=== PATIENT | male | born 1940 | race African-American/Black ===

== ENCOUNTER 2021-07-25 21:45 | Inpatient (IN) | payer MEDICARE ==
[~2021-07-25] VITALS: Ht 162.6 cm; Wt 68.9 kg
[2021-07-25 21:45] VITALS: BP 137/88
[~2021-07-25 21:45] MED LIST: BACL20TA PO; GABA-532 PO; OMEP20CA14 PO; OXYC-662 MT; OXYC10TA58 PO; TAMS-11 PO
[2021-07-25] MEDS ORDERED: IPRATROPIUM/ALBUTEROL 0.5-3(2.5)MG/3ML NEB HHN PRN (23:45)
[2021-07-26] MEDS ORDERED: CLONIDINE 0.1MG TABLET PO PRN
[2021-07-26] MEDS ORDERED: SODIUM CHLORIDE 0.9% INJ 3ML FLUSH IVF PRN
[2021-07-26] MEDS ORDERED: ONDANSETRON HCL 4MG TABLET PO PRN
[2021-07-26] MEDS ORDERED: GUAIFENESIN 200MG/10ML SUGAR FREE UDC PO PRN
[2021-07-26] MEDS ORDERED: NITROGLYCERIN 0.4MG TABLET SL SL PRN (00:15)
[2021-07-26] MEDS: OXYCODONE HCL/ACETAMINOPHEN 5/325MG TABLET PO PRN ×2 (01:12→13:42)
[2021-07-26 02:54] LABS: CLARITY URINE CLEAR (CLEAR); COLOR URINE YELLOW (YELLOW); KETONES URINE 1+ (NEGATIVE); LEUKOCYTE ESTERASE URINE TRACE (NEGATIVE); NITRITE URINE NEGATIVE (NEGATIVE); OCCULT BLOOD URINE 1+ (NEGATIVE); PH URINE >=9.0 (4.5-8.0); PROTEIN URINE 1+ (NEGATIVE); SPECIFIC GRAVITY URINE 1.018 (1.005-1.030)
[2021-07-26 06:25] LABS: BASOPHILS % 0.5 % (0.0-2.0); EOSINOPHILS % 4.7 % (0.0-5.0); HEMATOCRIT. 33.2 % (42.0-52.0); HEMOGLOBIN. 11.4 g/dL (14.0-18.0); LYMPHOCYTES % 17.9 % (20.0-50.0); MEAN CORPUSCULAR HEMOGLOBIN 26.1 pg (28.0-32.0); MEAN CORPUSCULAR VOLUME 76.2 fL (80.0-94.0); MEAN PLATELET VOLUME 7.7 fl (7.4-10.4); MONOCYTES % 11.5 % (2.0-8.0); NEUTROPHILS % 65.4 % (40.0-76.0); PLATELET 253 x1000/uL (130-400); RED BLOOD CELL COUNT 4.36 mill/uL (4.7-6.1); RED CELL DISTRIBUTION WIDTH 19.6 % (11.6-14.6)
[2021-07-26 06:37] LABS: CHLORIDE 108 mEq/L (98-107)
[2021-07-26 08:00] VITALS: BP 136/81
[2021-07-26] MEDS ORDERED: LACTULOSE 20G/30ML UDC PO SCH (08:30)
[2021-07-26] MEDS ORDERED: ENOXAPARIN 60MG/0.6ML SYR SUBCUT SCH (09:00)
[2021-07-26] MEDS: DUTASTERIDE 0.5MG CAPSULE PO SCH ×2 (10:05→20:41)
[2021-07-26] MEDS: DOCUSATE SODIUM 100MG CAPSULE PO SCH ×2 (10:06→17:00)
[2021-07-26] MEDS: FUROSEMIDE 40MG TABLET PO SCH (10:06)
[2021-07-26] MEDS: ASPIRIN 81MG TABLET PO SCH (10:06)
[2021-07-26] MEDS: AMLODIPINE 5MG TABLET PO SCH ×2 (10:07→20:36)
[2021-07-26] MEDS: METOPROLOL TARTRATE 25MG TABLET PO SCH ×2 (10:07→20:36)
[2021-07-26] MEDS: TAMSULOSIN HCL 0.4MG SR CAPSULE PO SCH ×2 (10:07→20:41)
[2021-07-26] MEDS: OXYCODONE HCL 10MG TABLET SR 12HR PO SCH ×2 (10:08→20:37)
[2021-07-26] MEDS: MAGNESIUM/ALUMINUM HYDROXIDE/SIMETHICONE 30ML UDC PO PRN (11:00)
[2021-07-26] MEDS ORDERED: NALOXONE HCL 0.4MG/ML VIAL IV PRN (13:15)
[2021-07-26 20:00] VITALS: BP 151/71
[2021-07-26] MEDS: ATORVASTATIN CALCIUM 40MG TABLET PO SCH (20:33)
[2021-07-26] MEDS ORDERED: FAMOTIDINE 20MG TABLET PO SCH (21:00)
[2021-07-27] MEDS: OXYCODONE HCL/ACETAMINOPHEN 5/325MG TABLET PO PRN ×2 (04:52→17:57)
[2021-07-27 07:57] VITALS: BP 144/83
[2021-07-27] MEDS: ASPIRIN 81MG TABLET PO SCH (09:00)
[2021-07-27] MEDS: MAGNESIUM/ALUMINUM HYDROXIDE/SIMETHICONE 30ML UDC PO PRN (09:12)
[2021-07-27] MEDS: DOCUSATE SODIUM 100MG CAPSULE PO SCH ×2 (09:12→17:00)
[2021-07-27] MEDS: TAMSULOSIN HCL 0.4MG SR CAPSULE PO SCH (09:12)
[2021-07-27] MEDS: AMLODIPINE 5MG TABLET PO SCH ×2 (09:13→21:00)
[2021-07-27] MEDS: DUTASTERIDE 0.5MG CAPSULE PO SCH (09:13)
[2021-07-27] MEDS: FUROSEMIDE 40MG TABLET PO SCH (09:13)
[2021-07-27] MEDS: METOPROLOL TARTRATE 25MG TABLET PO SCH ×2 (09:13→21:00)
[2021-07-27] MEDS: OXYCODONE HCL 10MG TABLET SR 12HR PO SCH ×2 (09:13→21:34)
[2021-07-27] MEDS: ENOXAPARIN 60MG/0.6ML SYR SUBCUT SCH (09:14)
[2021-07-27] MEDS: PANTOPRAZOLE 40MG DR TABLET PO SCH (12:28)
[2021-07-27 20:00] VITALS: BP 94/58
[2021-07-27 20:22] LABS: BASOPHILS % 0.4 % (0.0-2.0); EOSINOPHILS % 2.3 % (0.0-5.0); HEMATOCRIT. 34.8 % (42.0-52.0); HEMOGLOBIN. 11.9 g/dL (14.0-18.0); LYMPHOCYTES % 16.8 % (20.0-50.0); MEAN CORPUSCULAR HEMOGLOBIN 26.2 pg (28.0-32.0); MONOCYTES % 8.3 % (2.0-8.0); NEUTROPHILS % 72.2 % (40.0-76.0); RED BLOOD CELL COUNT 4.52 mill/uL (4.7-6.1); RED CELL DISTRIBUTION WIDTH 20.2 % (11.6-14.6)
[2021-07-27 20:50] LABS: CHLORIDE 105 mEq/L (98-107)
[2021-07-27 20:56] LABS: TOTAL IRON BINDING CAPACITY 242 ug/dL (250-450)
[2021-07-27 21:07] LABS: PLATELET ESTIMATE NORMAL
[2021-07-27 21:08] LABS: FOLIC ACID (FOLATE) SERUM 7.9 ng/mL (>5.38)
[2021-07-27 21:09] LABS: MEAN PLATELET VOLUME 7.9 fl (7.4-10.4); PLATELET 231 x1000/uL (130-400)
[2021-07-27] MEDS: ATORVASTATIN CALCIUM 40MG TABLET PO SCH (21:33)
[2021-07-28] MEDS: OXYCODONE HCL/ACETAMINOPHEN 5/325MG TABLET PO PRN ×2 (06:46→18:59)
[2021-07-28] MEDS: PANTOPRAZOLE 40MG DR TABLET PO SCH (06:46)
[2021-07-28 08:00] VITALS: BP 119/68
[2021-07-28] MEDS: METOPROLOL TARTRATE 25MG TABLET PO SCH ×2 (09:40→21:38)
[2021-07-28] MEDS: TAMSULOSIN HCL 0.4MG SR CAPSULE PO SCH (09:40)
[2021-07-28] MEDS: DOCUSATE SODIUM 100MG CAPSULE PO SCH ×2 (09:41→17:00)
[2021-07-28] MEDS: ASPIRIN 81MG TABLET PO SCH (09:41)
[2021-07-28] MEDS: FUROSEMIDE 40MG TABLET PO SCH (09:41)
[2021-07-28] MEDS: OXYCODONE HCL 10MG TABLET SR 12HR PO SCH ×2 (09:42→21:38)
[2021-07-28] MEDS: AMLODIPINE 5MG TABLET PO SCH ×2 (09:50→21:38)
[2021-07-28] MEDS: DUTASTERIDE 0.5MG CAPSULE PO SCH (09:50)
[2021-07-28] MEDS: CYANOCOBALAMIN 1000MCG/ML VIAL IM SCH (12:42)
[2021-07-28] MEDS: ASCORBIC ACID 500 MG TABLET PO SCH (12:42)
[2021-07-28] MEDS: FERROUS SULFATE 325MG TABLET PO SCH ×2 (12:42→17:00)
[2021-07-28 20:00] VITALS: BP 128/75
[2021-07-28] MEDS: ATORVASTATIN CALCIUM 40MG TABLET PO SCH (21:38)
[2021-07-29] MEDS: PANTOPRAZOLE 40MG DR TABLET PO SCH (06:44)
[2021-07-29 08:00] VITALS: BP 120/80
[2021-07-29] MEDS: DOCUSATE SODIUM 100MG CAPSULE PO SCH ×2 (09:00→17:00)
[2021-07-29] MEDS: DUTASTERIDE 0.5MG CAPSULE PO SCH (10:13)
[2021-07-29] MEDS: ASPIRIN 81MG TABLET PO SCH (10:14)
[2021-07-29] MEDS: FUROSEMIDE 40MG TABLET PO SCH (10:14)
[2021-07-29] MEDS: CYANOCOBALAMIN 1000MCG/ML VIAL IM SCH (10:15)
[2021-07-29] MEDS: TAMSULOSIN HCL 0.4MG SR CAPSULE PO SCH (10:15)
[2021-07-29] MEDS: ASCORBIC ACID 500 MG TABLET PO SCH (10:16)
[2021-07-29] MEDS: OXYCODONE HCL 10MG TABLET SR 12HR PO SCH ×2 (10:16→21:34)
[2021-07-29] MEDS: FERROUS SULFATE 325MG TABLET PO SCH ×3 (10:17→17:00)
[2021-07-29] MEDS: METOPROLOL TARTRATE 25MG TABLET PO SCH ×2 (10:17→21:35)
[2021-07-29] MEDS: AMLODIPINE 5MG TABLET PO SCH ×2 (10:22→21:34)
[2021-07-29] MEDS: OXYCODONE HCL/ACETAMINOPHEN 5/325MG TABLET PO PRN (15:30)
[2021-07-29 20:00] VITALS: BP 119/68
[2021-07-29] MEDS: ENOXAPARIN 60MG/0.6ML SYR SUBCUT SCH (21:33)
[2021-07-29] MEDS: ATORVASTATIN CALCIUM 40MG TABLET PO SCH (21:34)
[2021-07-30] MEDS: OXYCODONE HCL/ACETAMINOPHEN 5/325MG TABLET PO PRN ×2 (03:46→15:19)
[2021-07-30 06:08] LABS: BASOPHILS % 0.3 % (0.0-2.0); EOSINOPHILS % 3.5 % (0.0-5.0); HEMATOCRIT. 31.1 % (42.0-52.0); HEMOGLOBIN. 10.7 g/dL (14.0-18.0); MEAN CORPUSCULAR HEMOGLOBIN 25.9 pg (28.0-32.0); MEAN CORPUSCULAR VOLUME 75.2 fL (80.0-94.0); MONOCYTES % 9.4 % (2.0-8.0); NEUTROPHILS % 70.8 % (40.0-76.0); PLATELET 410 x1000/uL (130-400); RED BLOOD CELL COUNT 4.13 mill/uL (4.7-6.1); RED CELL DISTRIBUTION WIDTH 19.6 % (11.6-14.6)
[2021-07-30] MEDS: PANTOPRAZOLE 40MG DR TABLET PO SCH (06:31)
[2021-07-30 06:35] LABS: CHLORIDE 107 mEq/L (98-107)
[2021-07-30 08:00] VITALS: BP 116/65
[2021-07-30] MEDS: TAMSULOSIN HCL 0.4MG SR CAPSULE PO SCH (08:45)
[2021-07-30] MEDS: DOCUSATE SODIUM 100MG CAPSULE PO SCH ×2 (08:45→17:14)
[2021-07-30] MEDS: AMLODIPINE 5MG TABLET PO SCH ×2 (08:45→21:46)
[2021-07-30] MEDS: ASCORBIC ACID 500 MG TABLET PO SCH (08:45)
[2021-07-30] MEDS: DUTASTERIDE 0.5MG CAPSULE PO SCH (08:45)
[2021-07-30] MEDS: ASPIRIN 81MG TABLET PO SCH (08:46)
[2021-07-30] MEDS: FUROSEMIDE 40MG TABLET PO SCH (08:46)
[2021-07-30] MEDS: METOPROLOL TARTRATE 25MG TABLET PO SCH ×2 (08:46→21:46)
[2021-07-30] MEDS: FERROUS SULFATE 325MG TABLET PO SCH ×3 (08:46→17:14)
[2021-07-30] MEDS: OXYCODONE HCL 10MG TABLET SR 12HR PO SCH ×2 (08:47→21:48)
[2021-07-30] MEDS: CYANOCOBALAMIN 1000MCG/ML VIAL IM SCH (08:48)
[2021-07-30] MEDS: ENOXAPARIN 60MG/0.6ML SYR SUBCUT SCH (08:49)
[2021-07-30 20:00] VITALS: BP 128/82
[2021-07-30] MEDS: ATORVASTATIN CALCIUM 40MG TABLET PO SCH (21:46)
[2021-07-30] MEDS: ENOXAPARIN 80MG/0.8ML SYR SUBCUT SCH (21:48)
[2021-07-31] MEDS: PANTOPRAZOLE 40MG DR TABLET PO SCH (06:25)
[2021-07-31 07:54] VITALS: BP 134/72
[2021-07-31 08:00] VITALS: BP 134/72
[2021-07-31] MEDS: ASPIRIN 81MG TABLET PO SCH (08:25)
[2021-07-31] MEDS: FERROUS SULFATE 325MG TABLET PO SCH ×3 (08:25→16:48)
[2021-07-31] MEDS: ASCORBIC ACID 500 MG TABLET PO SCH (08:25)
[2021-07-31] MEDS: FUROSEMIDE 40MG TABLET PO SCH (08:25)
[2021-07-31] MEDS: TAMSULOSIN HCL 0.4MG SR CAPSULE PO SCH (08:26)
[2021-07-31] MEDS: AMLODIPINE 5MG TABLET PO SCH ×2 (08:26→21:38)
[2021-07-31] MEDS: METOPROLOL TARTRATE 25MG TABLET PO SCH ×2 (08:26→21:38)
[2021-07-31] MEDS: CYANOCOBALAMIN 1000MCG/ML VIAL IM SCH (08:27)
[2021-07-31] MEDS: OXYCODONE HCL 10MG TABLET SR 12HR PO SCH (08:28)
[2021-07-31] MEDS: DOCUSATE SODIUM 100MG CAPSULE PO SCH ×2 (08:28→15:57)
[2021-07-31] MEDS: DUTASTERIDE 0.5MG CAPSULE PO SCH (08:39)
[2021-07-31] MEDS: ENOXAPARIN 80MG/0.8ML SYR SUBCUT SCH ×2 (08:42→21:40)
[2021-07-31] MEDS: ACETAMINOPHEN 325MG TABLET PO PRN (15:55)
[2021-07-31] MEDS: OXYCODONE HCL/ACETAMINOPHEN 5/325MG TABLET PO PRN (17:52)
[2021-07-31 20:00] VITALS: BP 132/73
[2021-07-31] MEDS: ATORVASTATIN CALCIUM 40MG TABLET PO SCH (21:38)
[2021-08-01] MEDS: OXYCODONE HCL/ACETAMINOPHEN 5/325MG TABLET PO PRN ×4 (02:47→21:07)
[2021-08-01] MEDS: ACETAMINOPHEN 325MG TABLET PO PRN (06:14)
[2021-08-01] MEDS: PANTOPRAZOLE 40MG DR TABLET PO SCH (06:14)
[2021-08-01 07:06] LABS: BASOPHILS % 0.5 % (0.0-2.0); EOSINOPHILS % 4.2 % (0.0-5.0); HEMATOCRIT. 33.5 % (42.0-52.0); HEMOGLOBIN. 11.4 g/dL (14.0-18.0); LYMPHOCYTES % 18.4 % (20.0-50.0); MEAN CORPUSCULAR HEMOGLOBIN 25.9 pg (28.0-32.0); MEAN CORPUSCULAR VOLUME 75.6 fL (80.0-94.0); MEAN PLATELET VOLUME 8.3 fl (7.4-10.4); NEUTROPHILS % 67.9 % (40.0-76.0); PLATELET 474 x1000/uL (130-400); RED BLOOD CELL COUNT 4.42 mill/uL (4.7-6.1); RED CELL DISTRIBUTION WIDTH 20.1 % (11.6-14.6)
[2021-08-01 07:25] LABS: CHLORIDE 107 mEq/L (98-107)
[2021-08-01 07:56] VITALS: BP 127/82
[2021-08-01] MEDS: ASPIRIN 81MG TABLET PO SCH (08:32)
[2021-08-01] MEDS: FERROUS SULFATE 325MG TABLET PO SCH ×3 (08:32→16:48)
[2021-08-01] MEDS: ASCORBIC ACID 500 MG TABLET PO SCH (08:33)
[2021-08-01] MEDS: METOPROLOL TARTRATE 25MG TABLET PO SCH ×2 (08:33→20:31)
[2021-08-01] MEDS: FUROSEMIDE 40MG TABLET PO SCH (08:33)
[2021-08-01] MEDS: TAMSULOSIN HCL 0.4MG SR CAPSULE PO SCH (08:34)
[2021-08-01] MEDS: CYANOCOBALAMIN 1000MCG/ML VIAL IM SCH (08:34)
[2021-08-01] MEDS: AMLODIPINE 5MG TABLET PO SCH ×2 (08:34→20:32)
[2021-08-01] MEDS: DUTASTERIDE 0.5MG CAPSULE PO SCH (08:34)
[2021-08-01] MEDS: ENOXAPARIN 80MG/0.8ML SYR SUBCUT SCH ×2 (08:35→20:31)
[2021-08-01] MEDS: DOCUSATE SODIUM 100MG CAPSULE PO SCH ×2 (08:35→16:24)
[2021-08-01] MEDS: FINASTERIDE 5MG TABLET PO SCH (14:10)
[2021-08-01] MEDS ORDERED: NALOXONE HCL 0.4MG/ML VIAL IV PRN (17:30)
[2021-08-01 20:00] VITALS: BP 124/73
[2021-08-01] MEDS: ATORVASTATIN CALCIUM 40MG TABLET PO SCH (20:31)
[2021-08-02 02:40] VITALS: BP 133/72
[2021-08-02] MEDS: OXYCODONE HCL/ACETAMINOPHEN 5/325MG TABLET PO PRN ×4 (02:48→21:16)
[2021-08-02] MEDS: PANTOPRAZOLE 40MG DR TABLET PO SCH (06:30)
[2021-08-02 08:00] VITALS: BP 138/78
[2021-08-02] MEDS: DOCUSATE SODIUM 100MG CAPSULE PO SCH ×3 (09:00→17:00)
[2021-08-02] MEDS: FUROSEMIDE 40MG TABLET PO SCH (09:06)
[2021-08-02] MEDS: FINASTERIDE 5MG TABLET PO SCH (09:06)
[2021-08-02] MEDS: AMLODIPINE 5MG TABLET PO SCH ×2 (09:06→20:13)
[2021-08-02] MEDS: ASCORBIC ACID 500 MG TABLET PO SCH (09:06)
[2021-08-02] MEDS: ASPIRIN 81MG TABLET PO SCH (09:06)
[2021-08-02] MEDS: TAMSULOSIN HCL 0.4MG SR CAPSULE PO SCH (09:06)
[2021-08-02] MEDS: FERROUS SULFATE 325MG TABLET PO SCH ×3 (09:06→17:57)
[2021-08-02] MEDS: METOPROLOL TARTRATE 25MG TABLET PO SCH ×2 (09:08→20:13)
[2021-08-02] MEDS: ENOXAPARIN 80MG/0.8ML SYR SUBCUT SCH ×2 (09:09→20:12)
[2021-08-02 20:00] VITALS: BP 132/77
[2021-08-02] MEDS: ATORVASTATIN CALCIUM 40MG TABLET PO SCH (20:12)
[2021-08-03] MEDS: OXYCODONE HCL/ACETAMINOPHEN 5/325MG TABLET PO PRN ×2 (03:27→08:45)
[2021-08-03] MEDS: PANTOPRAZOLE 40MG DR TABLET PO SCH (06:03)
[2021-08-03 08:00] VITALS: BP 132/82
[2021-08-03 08:31] VITALS: BP 19/132
[2021-08-03] MEDS: ASCORBIC ACID 500 MG TABLET PO SCH (08:43)
[2021-08-03] MEDS: ASPIRIN 81MG TABLET PO SCH (08:43)
[2021-08-03] MEDS: DOCUSATE SODIUM 100MG CAPSULE PO SCH (08:43)
[2021-08-03] MEDS: AMLODIPINE 5MG TABLET PO SCH (08:43)
[2021-08-03] MEDS: FUROSEMIDE 40MG TABLET PO SCH (08:43)
[2021-08-03] MEDS: FINASTERIDE 5MG TABLET PO SCH (08:43)
[2021-08-03] MEDS: FERROUS SULFATE 325MG TABLET PO SCH (08:44)
[2021-08-03] MEDS: METOPROLOL TARTRATE 25MG TABLET PO SCH (08:44)
[2021-08-03 08:45] VITALS: BP 150/80
[2021-08-03] MEDS: ENOXAPARIN 80MG/0.8ML SYR SUBCUT SCH (08:45)
[2021-08-03] MEDS: TAMSULOSIN HCL 0.4MG SR CAPSULE PO SCH (08:48)
[2021-08-03] MEDS ORDERED: NALOXONE HCL 0.4MG/ML VIAL IV PRN (09:45)
[2021-08-06 17:09] LABS: 25-HYDROXY VITAMIN D3 11 ng/mL (.)
== END 2021-08-03 10:52 | disposition home health service (06) | DRG 281 ==
PROVIDERS: ADMIT Physical Medicine & Rehabilitation Spinal Cord Injury Medicine; ATTEND Internal Medicine
DX: I21.4 Non-ST elevation (NSTEMI) myocardial infarction (principal); D62 Acute posthemorrhagic anemia; E44.0 Moderate protein-calorie malnutrition; I42.9 Cardiomyopathy, unspecified; N13.8 Other obstructive and reflux uropathy; D63.8 Anemia in other chronic diseases classified elsewhere; E53.8 Deficiency of other specified B group vitamins; E61.1 Iron deficiency; E78.5 Hyperlipidemia, unspecified; E87.6 Hypokalemia; F06.8 Other specified mental disorders due to known physiological condition; F06.34 Mood disorder due to known physiological condition with mixed features; R53.81 Other malaise; Z60.2 Problems related to living alone; G89.4 Chronic pain syndrome; I11.0 Hypertensive heart disease with heart failure; I25.10 Atherosclerotic heart disease of native coronary artery without angina pectoris; I50.9 Heart failure, unspecified; R26.9 Unspecified abnormalities of gait and mobility; K21.9 Gastro-esophageal reflux disease without esophagitis; N40.1 Benign prostatic hyperplasia with lower urinary tract symptoms; R33.8 Other retention of urine; R13.10 Dysphagia, unspecified; Z82.49 Family history of ischemic heart disease and other diseases of the circulatory system; Z95.1 Presence of aortocoronary bypass graft; Z56.0 Unemployment, unspecified; Z68.26 Body mass index [BMI] 26.0-26.9, adult
CPT/HCPCS: 36415; 80048; 80053; 81003; 82306; 82607; 82728; 82746; 83540; 83550; 84134; 84153; 84443; 85025; 92610; 93970; 97110; 97112; 97116; 97163; 97166; 97530; 97535; J1650; J3420; G0103

== ENCOUNTER 2021-12-22 13:39 | Emergency (ER) | payer MEDICARE, MEDICAID ==
[~2021-12-22] VITALS: Ht 160 cm; Wt 68.0 kg
[2021-12-22 14:47] LABS: CLARITY URINE CLEAR (CLEAR); COLOR URINE YELLOW (YELLOW); KETONES URINE NEGATIVE (NEGATIVE); LEUKOCYTE ESTERASE URINE TRACE (NEGATIVE); NITRITE URINE NEGATIVE (NEGATIVE); OCCULT BLOOD URINE 3+ (NEGATIVE); PH URINE 7.5 (4.5-8.0); PROTEIN URINE NEGATIVE (NEGATIVE); SPECIFIC GRAVITY URINE 1.007 (1.005-1.030); UROBILINOGEN URINE 0.2 E.U./dL (0.2-1.0)
[2021-12-22] MEDS ORDERED: NITR-87 MT (16:49)
[2021-12-22 18:30] VITALS: BP 133/88
== END 2021-12-22 18:50 | disposition home or self-care (01) ==
LOC: ER 13:58
DX: N40.1 Benign prostatic hyperplasia with lower urinary tract symptoms (principal); R33.8 Other retention of urine; N39.0 Urinary tract infection, site not specified; I10 Essential (primary) hypertension; Z98.890 Other specified postprocedural states
CPT/HCPCS: 81003; 87077; 87186; 99285; A4315

== ENCOUNTER 2022-05-18 05:51 | Emergency (ER) | payer MEDICARE, MEDICAID ==
[~2022-05-18] VITALS: Ht 172.7 cm; Wt 70.0 kg
[~2022-05-18 05:51] MED LIST changes: +NITR-87 MT
[2022-05-18 10:26] LABS: CLARITY URINE CLEAR (CLEAR); COLOR URINE YELLOW (YELLOW); KETONES URINE NEGATIVE (NEGATIVE); LEUKOCYTE ESTERASE URINE NEGATIVE (NEGATIVE); NITRITE URINE NEGATIVE (NEGATIVE); OCCULT BLOOD URINE NEGATIVE (NEGATIVE); PH URINE 6.5 (4.5-8.0); PROTEIN URINE NEGATIVE (NEGATIVE); SPECIFIC GRAVITY URINE 1.014 (1.005-1.030)
[2022-05-18 12:53] VITALS: BP 116/72
== END 2022-05-18 12:54 | disposition home or self-care (01) ==
LOC: ER 05:51
DX: N40.1 Benign prostatic hyperplasia with lower urinary tract symptoms (principal); R33.8 Other retention of urine; Z95.1 Presence of aortocoronary bypass graft
CPT/HCPCS: 51702; 81003; 99284; A4315

== ENCOUNTER 2022-08-11 16:03 | Emergency (ER) | payer MEDICARE, MEDICAID ==
[~2022-08-11] VITALS: Ht 165.1 cm; Wt 68.0 kg
[2022-08-11 16:08] VITALS: BP 152/98
[2022-08-11 18:18] LABS: CLARITY URINE TURBID (CLEAR); COLOR URINE YELLOW (YELLOW); KETONES URINE NEGATIVE (NEGATIVE); LEUKOCYTE ESTERASE URINE 3+ (NEGATIVE); NITRITE URINE NEGATIVE (NEGATIVE); OCCULT BLOOD URINE 2+ (NEGATIVE); PH URINE 6.5 (4.5-8.0); PROTEIN URINE TRACE (NEGATIVE); SPECIFIC GRAVITY URINE 1.009 (1.005-1.030); UROBILINOGEN URINE 0.2 E.U./dL (0.2-1.0)
[2022-08-11] MEDS ORDERED: CEPH500C2 MT (19:13)
== END 2022-08-11 19:30 | disposition home or self-care (01) ==
LOC: ER 16:03
DX: R33.9 Retention of urine, unspecified (principal); N39.0 Urinary tract infection, site not specified; I25.2 Old myocardial infarction; I25.10 Atherosclerotic heart disease of native coronary artery without angina pectoris
CPT/HCPCS: 81003; 87077; 87186; 99283; A4315

== ENCOUNTER 2022-10-24 17:34 | Emergency (ER) | payer MEDICARE, MEDICAID ==
[~2022-10-24] VITALS: Ht 160 cm; Wt 64.0 kg
[~2022-10-24 17:34] MED LIST changes: +ATOR40TA70 PO; -BACL20TA PO; +CIPR-263 MT; +DUTA0.5C37 PO; +FERR325T30 PO; +FURO40TA5 PO; -GABA-532 PO; +MELO-106 PO; +METO25TA6 PO; +NIFE-33 PO; -NITR-87 MT; -OXYC10TA58 PO
[2022-10-24 18:04] VITALS: BP 131/78; O2SAT 98
[2022-10-24 22:56] LABS: CLARITY URINE CLEAR (CLEAR); COLOR URINE YELLOW (YELLOW); KETONES URINE NEGATIVE (NEGATIVE); LEUKOCYTE ESTERASE URINE NEGATIVE (NEGATIVE); NITRITE URINE NEGATIVE (NEGATIVE); OCCULT BLOOD URINE NEGATIVE (NEGATIVE); PH URINE 6.5 (4.5-8.0); PROTEIN URINE NEGATIVE (NEGATIVE); SPECIFIC GRAVITY URINE 1.009 (1.005-1.030); UROBILINOGEN URINE 0.2 E.U./dL (0.2-1.0)
[2022-10-24 23:38] VITALS: PULSE 94; RESP 18; TEMP 98.4
== END 2022-10-24 23:30 | disposition home or self-care (01) ==
LOC: ER 17:34
DX: R82.81 Pyuria (principal); I10 Essential (primary) hypertension; Z79.899 Other long term (current) drug therapy
CPT/HCPCS: 81003; 99283

== ENCOUNTER 2022-11-03 12:42 | Emergency (ER) | payer MEDICARE, MEDICAID ==
[~2022-11-03] VITALS: Ht 160 cm; Wt 66.0 kg
[2022-11-03 12:54] VITALS: O2SAT 100
[2022-11-03 13:48] LABS: EOSINOPHILS % 1.2 % (0.0-5.0); HEMATOCRIT. 38.9 % (42.0-52.0); HEMOGLOBIN. 13.8 g/dL (14.0-18.0); LYMPHOCYTES % 34.3 % (20.0-50.0); MEAN CORPUSCULAR VOLUME 81.3 fL (80.0-94.0); MEAN PLATELET VOLUME 8.6 fl (7.4-10.4); NEUTROPHILS % 54.5 % (40.0-76.0); PLATELET 258 x1000/uL (130-400); RED BLOOD CELL COUNT 4.78 mill/uL (4.7-6.1); RED CELL DISTRIBUTION WIDTH 16.2 % (11.6-14.6)
[2022-11-03 13:56] LABS: CHLORIDE 98 mEq/L (98-107); CLARITY URINE CLEAR (CLEAR); COLOR URINE YELLOW (YELLOW); KETONES URINE NEGATIVE (NEGATIVE); LEUKOCYTE ESTERASE URINE NEGATIVE (NEGATIVE); NITRITE URINE NEGATIVE (NEGATIVE); OCCULT BLOOD URINE TRACE (NEGATIVE); PROTEIN URINE NEGATIVE (NEGATIVE); SPECIFIC GRAVITY URINE 1.006 (1.005-1.030); UROBILINOGEN URINE 0.2 E.U./dL (0.2-1.0)
[2022-11-03 15:21] VITALS: BP 126/74; PULSE 59; RESP 16; TEMP 98.3
== END 2022-11-03 15:44 | disposition home or self-care (01) ==
LOC: ER 12:50
DX: R33.9 Retention of urine, unspecified (principal); I10 Essential (primary) hypertension; Z79.899 Other long term (current) drug therapy
CPT/HCPCS: 36415; 80053; 81003; 85025; 99283; A4315

== ENCOUNTER 2022-11-27 10:22 | Emergency (ER) | payer MEDICARE, MEDICAID ==
[~2022-11-27] VITALS: Ht 157.5 cm; Wt 68.0 kg
[2022-11-27 10:32] VITALS: O2SAT 97
[2022-11-27 12:02] VITALS: BP 147/84; PULSE 82; RESP 20; TEMP 98.3
== END 2022-11-27 12:05 | disposition home or self-care (01) ==
LOC: ER 10:32
DX: R33.9 Retention of urine, unspecified (principal); I25.2 Old myocardial infarction; I10 Essential (primary) hypertension; Z98.890 Other specified postprocedural states
CPT/HCPCS: 51702; 99284; A4315

== ENCOUNTER 2023-05-10 09:26 | Emergency (ER) | payer MEDICARE, MEDICAID ==
[~2023-05-10] VITALS: Ht 160 cm; Wt 62.6 kg
[2023-05-10 09:43] VITALS: O2SAT 96
[2023-05-10 10:24] LABS: BASOPHILS % 0.6 % (0.0-2.0); EOSINOPHILS % 2.1 % (0.0-5.0); HEMATOCRIT. 41.7 % (42.0-52.0); HEMOGLOBIN. 14.3 g/dL (14.0-18.0); LYMPHOCYTES % 10.2 % (20.0-50.0); MEAN CORPUSCULAR HEMOGLOBIN 29.1 pg (28.0-32.0); MEAN CORPUSCULAR HGB CONC 34.3 g/dL (31.0-37.0); MEAN CORPUSCULAR VOLUME 84.9 fL (80.0-94.0); MEAN PLATELET VOLUME 8.7 fl (7.4-10.4); MONOCYTES % 4.9 % (2.0-8.0); NEUTROPHILS % 82.2 % (40.0-76.0); PLATELET 250 x1000/uL (130-400); RED BLOOD CELL COUNT 4.91 mill/uL (4.7-6.1); RED CELL DISTRIBUTION WIDTH 15.5 % (11.6-14.6); WHITE BLOOD COUNT 10.6 x1000/uL (4.5-11.0)
[2023-05-10 10:28] LABS: ALANINE AMINOTRANSFERASE 8 IU/L (10-49); ALBUMIN 4.2 g/dL (3.2-4.8); ASPARTATE AMINOTRANSFERASE 17 IU/L (<34); BILIRUBIN TOTAL 0.5 mg/dL (0.1-1.0); CALCIUM 9.7 mg/dL (8.7-10.4); CARBON DIOXIDE 24 mEq/L (21-32); CHLORIDE 103 mEq/L (98-107); GLUCOSE 105 mg/dL (70-105); POTASSIUM 4.6 mEq/L (3.5-5.1); PROTEIN TOTAL 9.1 g/dL (6.0-8.3); SODIUM 137 mEq/L (136-145); UREA NITROGEN BLOOD 18 mg/dL (9-23)
[2023-05-10 11:13] LABS: GLUCOSE URINE NEGATIVE (NEGATIVE); KETONES URINE NEGATIVE (NEGATIVE)
[2023-05-10 12:09] VITALS: BP 142/78; PULSE 113; RESP 18; TEMP 98.1
[2023-05-10 12:51] LABS: CLARITY URINE CLOUDY (CLEAR); COLOR URINE YELLOW (YELLOW); PH URINE 7.5 (4.5-8.0); PROTEIN URINE TRACE (NEGATIVE)
[2023-05-10 12:52] LABS: LEUKOCYTE ESTERASE URINE 3+ (NEGATIVE); NITRITE URINE POSITIVE (NEGATIVE); OCCULT BLOOD URINE TRACE (NEGATIVE); UROBILINOGEN URINE 0.2 E.U./dL (0.2-1.0)
[2023-05-10 12:58] LABS: BACTERIA URINE 4+; SQUAMOUS EPITHELIAL CELL URINE NONE SEEN /lpf (RARE/1+); WBC URINE TNTC /hpf (0-2)
[2023-05-10 12:59] LABS: RBC URINE 0-2 /hpf (0-2)
== END 2023-05-10 12:10 | disposition home or self-care (01) ==
LOC: ER 10:06
DX: R33.9 Retention of urine, unspecified (principal); I10 Essential (primary) hypertension; I25.2 Old myocardial infarction; Z98.890 Other specified postprocedural states
CPT/HCPCS: 36415; 51702; 80053; 81003; 85025; 87186; 99284

== ENCOUNTER 2023-10-13 16:02 | Inpatient (IN) | payer MEDICARE, MEDICAID ==
[~2023-10-13] VITALS: Ht 160 cm; Wt 64.4 kg
[~2023-10-13 16:02] MED LIST changes: +OXYC10TA58 MT
[2023-10-13 16:37] VITALS: O2SAT 95
[2023-10-13] MEDS ORDERED: AMLODIPINE 10MG TABLET PO ONE (17:45)
[2023-10-13] MEDS: CEFTRIAXONE 1GM/50ML 50 ML IV ONE (19:24)
[2023-10-13 19:44] LABS: EOSINOPHILS % 1.7 % (0.0-5.0); HEMATOCRIT. 35.6 % (42.0-52.0); HEMOGLOBIN. 12.6 g/dL (14.0-18.0); LYMPHOCYTES % 20.4 % (20.0-50.0); MEAN CORPUSCULAR HEMOGLOBIN 28.2 pg (28.0-32.0); MEAN CORPUSCULAR HGB CONC 35.2 g/dL (31.0-37.0); MEAN CORPUSCULAR VOLUME 80.1 fL (80.0-94.0); MEAN PLATELET VOLUME 8.8 fl (7.4-10.4); MONOCYTES % 7.1 % (2.0-8.0); NEUTROPHILS % 69.8 % (40.0-76.0); PLATELET 313 x1000/uL (130-400); RED BLOOD CELL COUNT 4.45 mill/uL (4.7-6.1); RED CELL DISTRIBUTION WIDTH 15.7 % (11.6-14.6); WHITE BLOOD COUNT 11.2 x1000/uL (4.5-11.0)
[2023-10-13 19:45] LABS: CLARITY URINE TURBID (CLEAR); COLOR URINE YELLOW (YELLOW); GLUCOSE URINE NEGATIVE (NEGATIVE); KETONES URINE TRACE (NEGATIVE); LEUKOCYTE ESTERASE URINE 3+ (NEGATIVE); NITRITE URINE POSITIVE (NEGATIVE); OCCULT BLOOD URINE 2+ (NEGATIVE); PROTEIN URINE 3+ (NEGATIVE); SPECIFIC GRAVITY URINE 1.021 (1.005-1.030)
[2023-10-13 20:05] LABS: BACTERIA URINE 3+; RBC URINE TNTC /hpf (0-2); SQUAMOUS EPITHELIAL CELL URINE FEW /lpf (RARE/1+)
[2023-10-13 20:06] LABS: WBC URINE TNTC /hpf (0-2)
[2023-10-13 20:15] LABS: CHLORIDE 107 mEq/L (98-107); POTASSIUM 4.1 mEq/L (3.5-5.1); SODIUM 139 mEq/L (136-145)
[2023-10-13 20:16] LABS: CALCIUM 8.7 mg/dL (8.7-10.4); CARBON DIOXIDE 24 mEq/L (21-32)
[2023-10-13 20:21] LABS: GLUCOSE 98 mg/dL (70-105); UREA NITROGEN BLOOD 16 mg/dL (9-23)
[2023-10-13] MEDS: AMLODIPINE 5MG TABLET PO NR (20:21)
[2023-10-13] MEDS: GENTAMICIN SULFATE 80 MG in SODIUM CHLORIDE 0.9% 100 ML IV STA (20:21)
[2023-10-13] MEDS ORDERED: MORPHINE SULFATE 2 MG/ML CPJ (NOT FOR IM USE) IV ONE (22:45)
[2023-10-13] MEDS: MORPHINE SULFATE 2 MG/ML CPJ (NOT FOR IM USE) IV NR (22:49)
[2023-10-14] MEDS ORDERED: IPRATROPIUM/ALBUTEROL 0.5-3(2.5)MG/3ML NEB HHN PRN (07:45)
[2023-10-14] MEDS ORDERED: ACETAMINOPHEN 325MG TABLET PO PRN (07:45)
[2023-10-14] MEDS ORDERED: DOCUSATE SODIUM 100MG CAPSULE PO PRN (07:45)
[2023-10-14] MEDS ORDERED: GUAIFENESIN 200MG/10ML SUGAR FREE UDC PO PRN (07:45)
[2023-10-14] MEDS ORDERED: MAGNESIUM/ALUMINUM HYDROXIDE/SIMETHICONE 30ML UDC PO PRN (07:45)
[2023-10-14] MEDS ORDERED: ONDANSETRON HCL 4MG/2ML INJ IV PRN (07:45)
[2023-10-14] MEDS ORDERED: CLONIDINE 0.1MG TABLET PO PRN (07:45)
[2023-10-14 09:00] VITALS: BP 151/86; PULSE 59; RESP 18; TEMP 97.5
[2023-10-14] MEDS: OMEPRAZOLE 20MG CAPSULE EXTENDED RELEASE PO SCH (09:00)
[2023-10-14] MEDS: TAMSULOSIN HCL 0.4MG SR CAPSULE PO SCH (09:00)
[2023-10-14] MEDS: FERROUS SULFATE 325MG TABLET PO SCH (09:00)
[2023-10-14] MEDS: METOPROLOL TARTRATE 25MG TABLET PO SCH (09:00)
[2023-10-14] MEDS: NIFEDIPINE XL 30MG TAB PO SCH (09:19)
[2023-10-14] MEDS: ACETAMINOPHEN 325MG TABLET PO PRN (09:20)
[2023-10-14] MEDS ORDERED: DUTASTERIDE 0.5MG CAPSULE PO SCH (09:45)
[2023-10-14] MEDS: OXYCODONE HCL 5MG TABLET PO NR (13:33)
[2023-10-14] MEDS: AMLODIPINE 10MG TABLET PO SCH (13:45)
[2023-10-14] MEDS ORDERED: CEFAZOLIN 2GM/100ML 100 ML IV SCH (14:00)
[2023-10-14 15:54] LABS: CREATINE KINASE MB FRACTION 0.6 ng/mL (0.5-3.6)
[2023-10-14 16:00] VITALS: BP 128/64; PULSE 94; RESP 20; TEMP 98.2
[2023-10-14 16:02] LABS: TROPONIN I HIGH SENSITIVITY < 4 ng/L (3.0-53)
[2023-10-14 16:05] LABS: CREATINE KINASE 37 IU/L (46-171)
[2023-10-14] MEDS: CEFAZOLIN 1000MG PREMIX 50 ML IV SCH (16:37)
[2023-10-14 20:00] VITALS: BP 121/72; PULSE 66; RESP 20; TEMP 97.9
[2023-10-14] MEDS: ATORVASTATIN CALCIUM 40MG TABLET PO SCH (21:43)
[2023-10-14] MEDS ORDERED: BACL-141 PO (21:45)
[2023-10-14] MEDS ORDERED: OXYC5TAB3 PO (21:45)
[2023-10-14] MEDS ORDERED: GABA-532 PO (21:45)
[2023-10-14] MEDS ORDERED: OXYC10TA58 PO (21:45)
[2023-10-14] MEDS ORDERED: NALO4SPR3 (21:45)
[2023-10-14] MEDS ORDERED: APAL240T PO (21:45)
[2023-10-14 23:11] LABS: CREATINE KINASE 41 IU/L (46-171)
[2023-10-14 23:13] LABS: TROPONIN I HIGH SENSITIVITY < 4 ng/L (3.0-53)
[2023-10-15] VITALS: BP 138/82; PULSE 53; RESP 20; TEMP 97.5
[2023-10-15 04:00] VITALS: BP_SYST 134; BP_SYST 148; BP_DIAS 78; BP_DIAS 80; PULSE 60; PULSE 70; RESP 20; TEMP 97.5
[2023-10-15 06:46] LABS: BASOPHILS % 1.1 % (0.0-2.0); EOSINOPHILS % 9.8 % (0.0-5.0); HEMATOCRIT. 36.2 % (42.0-52.0); HEMOGLOBIN. 12.5 g/dL (14.0-18.0); MEAN CORPUSCULAR HGB CONC 34.5 g/dL (31.0-37.0); MONOCYTES % 8.3 % (2.0-8.0); NEUTROPHILS % 53.8 % (40.0-76.0); PLATELET 280 x1000/uL (130-400); RED BLOOD CELL COUNT 4.47 mill/uL (4.7-6.1); RED CELL DISTRIBUTION WIDTH 15.6 % (11.6-14.6); WHITE BLOOD COUNT 7.2 x1000/uL (4.5-11.0)
[2023-10-15] MEDS: OMEPRAZOLE 20MG CAPSULE EXTENDED RELEASE PO SCH (07:02)
== END 2023-10-15 10:00 | disposition home or self-care (01) | DRG 726 ==
LOC: ER 16:02 → 5WST 22:36 → EDBEDREQ 22:42 → 6EST 10-14 07:49
PROVIDERS: ADMIT Internal Medicine; ATTEND Internal Medicine
DX: N40.1 Benign prostatic hyperplasia with lower urinary tract symptoms (principal); N13.6 Pyonephrosis; I50.22 Chronic systolic (congestive) heart failure; Z16.11 Resistance to penicillins; C79.51 Secondary malignant neoplasm of bone; I11.0 Hypertensive heart disease with heart failure; R33.8 Other retention of urine; N43.3 Hydrocele, unspecified; K44.9 Diaphragmatic hernia without obstruction or gangrene; K40.90 Unilateral inguinal hernia, without obstruction or gangrene, not specified as recurrent; I25.10 Atherosclerotic heart disease of native coronary artery without angina pectoris; E78.5 Hyperlipidemia, unspecified; Z95.1 Presence of aortocoronary bypass graft; Z85.46 Personal history of malignant neoplasm of prostate
CPT/HCPCS: 36415; 80048; 81003; 82550; 82553; 84484; 85025; 87077; 87186; 99285; J0690; J0696; J1580; J2270; J7050

== ENCOUNTER 2023-11-09 04:58 | Emergency (ER) | payer MEDICARE, MEDICAID ==
[~2023-11-09] VITALS: Ht 160 cm; Wt 64.0 kg
[~2023-11-09 04:58] MED LIST changes: +APAL240T PO; +BACL-141 PO; +CEFP200T13 MT; -CIPR-263 MT; -DUTA0.5C37 PO; -FERR325T30 PO; -FURO40TA5 PO; +GABA-532 PO; -MELO-106 PO; -METO25TA6 PO; +NALO4SPR3; -NIFE-33 PO; -OMEP20CA14 PO; -OXYC-662 MT; -OXYC10TA58 MT; +OXYC10TA58 PO; +OXYC5TAB3 PO
[2023-11-09 05:05] VITALS: BP 139/92; PULSE 89; RESP 16; TEMP 98; O2SAT 97
[2023-11-09] MEDS: LIDOCAINE 2% JELLY APPLIC 5 ML MM NR (06:15)
[2023-11-09] MEDS ORDERED: LIDOCAINE HCL 2% JELLY 5ML MM NR (06:15)
[2023-11-09] MEDS ORDERED: LIDO5CRE18 TP (06:22)
== END 2023-11-09 07:24 | disposition home or self-care (01) ==
LOC: ER 05:17
DX: T83.098A Other mechanical complication of other urinary catheter, initial encounter (principal); I25.2 Old myocardial infarction; I10 Essential (primary) hypertension; Z98.890 Other specified postprocedural states; Y92.89 Other specified places as the place of occurrence of the external cause
CPT/HCPCS: 99282

== ENCOUNTER 2023-11-13 15:44 | Emergency (ER) | payer MEDICARE, MEDICAID ==
[~2023-11-13] VITALS: Ht 167.6 cm; Wt 60.0 kg
[~2023-11-13 15:44] MED LIST changes: +LIDO5CRE18 TP
[2023-11-13 15:50] VITALS: BP 151/95; PULSE 93; RESP 18; TEMP 98.2; O2SAT 99
[2023-11-13 18:06] LABS: CLARITY URINE TURBID (CLEAR); COLOR URINE YELLOW (YELLOW); GLUCOSE URINE NEGATIVE (NEGATIVE); KETONES URINE NEGATIVE (NEGATIVE); LEUKOCYTE ESTERASE URINE 3+ (NEGATIVE); NITRITE URINE NEGATIVE (NEGATIVE); OCCULT BLOOD URINE 2+ (NEGATIVE); PROTEIN URINE 2+ (NEGATIVE); SPECIFIC GRAVITY URINE 1.018 (1.005-1.030)
[2023-11-13 18:29] LABS: BACTERIA URINE TRACE; RBC URINE 15-25 /hpf (0-2); SQUAMOUS EPITHELIAL CELL URINE FEW /lpf (RARE/1+); WBC URINE TNTC /hpf (0-2)
[2023-11-13 18:30] LABS: YEAST URINE 1+
[2023-11-13] MEDS ORDERED: CEFP100T8 MT (18:54)
[2023-11-13] MEDS ORDERED: PHEN-909 MT (18:54)
[2023-11-13] MEDS: CEFTRIAXONE 1GM/50ML 50 ML IV ONE (19:00)
== END 2023-11-13 18:56 | disposition home or self-care (01) ==
LOC: ER 15:44
DX: N39.0 Urinary tract infection, site not specified (principal); I10 Essential (primary) hypertension; I25.2 Old myocardial infarction; Z79.899 Other long term (current) drug therapy; Z98.890 Other specified postprocedural states
CPT/HCPCS: 81003; 87106; 99283